=== PATIENT | female | born 1955 | race Caucasian/White ===

== ENCOUNTER 2018-06-26 16:05 | Inpatient (IN) | payer SELFPAY ==
[~2018-06-26] VITALS: Ht 167.6 cm; Wt 95.4 kg
[2018-06-26] MEDS ORDERED: cloNIDine HCL 0.1 MG TABLET PO ONE (16:30)
[2018-06-26 16:42] LABS: BASO # 0.1 x10^3/uL (0.0-0.2); BASO % 1 % (0-3); EOS # 0.4 x10^3/uL (0.0-0.7); EOS % 3 % (0-3); HEMOGLOBIN 12.6 g/dL (12.0-15.5); LYMPH # 0.9 x10^3/uL (1.0-4.8); LYMPH % 9 % (24-48); MEAN CORPUSCULAR HEMOGLOBIN 26 pg (25-35); MEAN CORPUSCULAR HGB CONC 33 g/dL (31-37); MEAN CORPUSCULAR VOLUME 79 fL (79-100); MONO # 0.4 x10^3/uL (0.0-1.1); MONO % 4 % (0-9); NEUT # 8.9 x10^3uL (1.8-7.7); NEUT % 83 % (31-73); PLATELET COUNT 247 x10^3/uL (140-400); RED BLOOD COUNT 4.84 x10^6/uL (3.50-5.40); RED CELL DISTRIBUTION WIDTH 14.3 % (11.5-14.5); WHITE BLOOD COUNT 10.7 x10^3/uL (4.0-11.0)
--- NOTE | 2018-06-26 16:44 | PHYS DOC ---
Past History Past Medical History: Depression, Hypertension, Other Past Surgical History: Appendectomy, , Other Alcohol Use: None Drug Use: None Adult General Chief Complaint Chief Complaint: CHEST PAIN HPI HPI 62-year-old female presents with chest pain. She comes from Dr. Ley's office. She was sitting on a couch around noon when she got a sudden movements central chest pressure. She rates it 8 out of 10. She also had some shortness of breath but no diaphoresis. He is never had pain like this before. She took an antacid pill, Mylanta, and a.she states that this helped with the pain a little bit, but it really didn't start to subside for about an hour. The patient does have a history of GERD, but only uses wwqv-oed-bmbheot medications occasionally. At this time as a 2 out of 10. She was given a 325 of aspirin at the doctor's office. She is also very hypertensive in the 190s over 90s. Patient takes lisinopril/ hydrochlorothiazide combo pills for her blood pressure. He is normally gives her good blood pressure control. Patient denies recent illness. She denies fever or chills. Review of Systems Review of Systems Constitutional: Denies fever or chills [] Eyes: Denies change in visual acuity, redness, or eye pain [] HENT: Denies nasal congestion or sore throat [] Respiratory: Denies cough or shortness of breath [] Cardiovascular: No additional information not addressed in HPI [] GI: Denies abdominal pain, nausea, vomiting, bloody stools or diarrhea [] : Denies dysuria or hematuria [] Musculoskeletal: Denies back pain or joint pain [] Integument: Denies rash or skin lesions [] Neurologic: Denies headache, focal weakness or sensory changes [] Endocrine: Denies polyuria or polydipsia [] All other systems were reviewed and found to be within normal limits, except as documented in this note. Current Medications Current Medications Current Medications Medications (Trade) Dose Ordered Sig/Asuncion Start Time Stop Time Status Last Admin Dose Admin Clonidine HCl (Catapres) 0.2 mg 1X ONCE 06/26/18 16:30 06/26/18 16:31 DC 06/26/18 16:32 0.2 MG Allergies Allergies Allergies Coded Allergies Type Severity Reaction Last Updated Verified No Known Drug Allergies 06/26/18 No Physical Exam Physical Exam Constitutional: Well developed, obese, well nourished, no acute distress, non- toxic appearance. [] HENT: Normocephalic, atraumatic, bilateral external ears normal, oropharynx moist, no oral exudates, nose normal. [] Eyes: PERRLA, EOMI, conjunctiva normal, no discharge. [] Neck: Normal range of motion, no tenderness, supple, no stridor. [] Cardiovascular:Heart rate regular rhythm, no murmur [] Lungs & Thorax: Bilateral breath sounds clear to auscultation [] Abdomen: Bowel sounds normal, soft, no tenderness, no masses, no pulsatile masses. [] Skin: Warm, dry, no erythema, no rash. [] Back: No tenderness, no CVA tenderness. [] Extremities: No tenderness, no cyanosis, no clubbing, ROM intact, 2+ edema lower legs. [] Neurologic: Alert and oriented X 3, normal motor function, normal sensory function, no focal deficits noted. [] Psychologic: Affect normal, judgement normal, mood normal. [] Current Patient Data Vital Signs Vital Signs Date Time Temp Pulse Resp B/P (MAP) Pulse Ox O2 Delivery O2 Flow Rate FiO2 06/26/18 16:32 75 194/99 06/26/18 16:15 98.2 14 95 Room Air EKG EKG [] Radiology/Procedures Radiology/Procedures [] Course & Med Decision Making Course & Med Decision Making Pertinent Labs and Imaging studies reviewed. (See chart for details) Patient's labs are significant for an elevated troponin of 0.217. Her EKG does not show ST elevation. Her other labs are unremarkable. We will admit her to the hospital. I will place her on heparin drip I discussed this with Dr. Ley and he has agreed with admission and management. Greater than 35 minutes of critical care time was spent on this patient exclusive of other billable procedures. [] Dragon Disclaimer Dragon Disclaimer This electronic medical record was generated, in whole or in part, using a voice recognition dictation system. Departure Departure: Impression: Primary Impression: Chest pain Additional Impressions: Hypertension NSTEMI (non-ST elevated myocardial infarction) Disposition: ADMITTED INPATIENT Condition: STABLE Referrals: MYLA LEY MD (PCP) Problem Qualifiers Primary Impression: Chest pain Chest pain type: precordial pain Qualified Codes: R07.2 - Precordial pain Additional Impressions: Hypertension Hypertension type: essential hypertension Qualified Codes: I10 - Essential (primary) hypertension REDDY SEO DO Jun 26, 2018 16:44
[2018-06-26 17:03] LABS: ALBUMIN 3.6 g/dL (3.4-5.0); ALBUMIN/GLOBULIN RATIO 0.9 (1.0-1.7); CALCIUM 9.1 mg/dL (8.5-10.1); POTASSIUM 3.6 mmol/L (3.5-5.1); TOTAL BILIRUBIN 0.4 mg/dL (0.2-1.0); TOTAL PROTEIN 7.6 g/dL (6.4-8.2)
[2018-06-26] MEDS ORDERED: HEPARIN for IV BOLUS 10,000 UNIT/10 ML VIAL. IV ONE (17:15)
[2018-06-26] MEDS ORDERED: HEPARIN for IV BOLUS 10,000 UNIT/10 ML VIAL. IV PRN ×2 (17:15)
--- NOTE | 2018-06-26 17:24 | EKG ---
[address] [address] Test Date: 2018-06-26 Test Time: 16:24:59 Pat Name: MAYELA NARVAEZ Department: Room: Gender: F Observer Helper: NELLA : 1955 Requested By: REDDY SEO Order Number: [id number] Reading MD: Elgin Boswell Measurements Intervals [place] Rate: 76 P: 0 HI: 132 QRS: 61 QRSD: 86 T: 54 QT: 404 QTc: 459 Interpretive Statements SINUS RHYTHM VENTRICULAR PREMATURE COMPLEX(ES) Electronically Signed On 06-29-2018 9:45:33 CDT by Elgin Boswell
--- NOTE | 2018-06-26 17:30 | RAD ---
CHEST AP ONLY History: CHEST PAIN. Comparison with August 02, 2005. The heart size remains prominent in transverse diameter. This is likely accentuated by portable technique but is unchanged. No evidence of pneumothorax. No pleural effusion. No evidence of an infiltrate. IMPRESSION: No evidence of consolidating infiltrate. Electronically signed by: Seun Mathis MD (06/26/2018 5:27 PM) [facility]
[2018-06-26] MEDS: HEPARIN 25,000UTS/500ML PREMIX 500 ML IV PRN ×2 (17:31→17:37)
[2018-06-26] MEDS ORDERED: MORPHINE SULFATE 4 MG/ML DISP.SYRIN. IV PRN (17:45)
[2018-06-26] MEDS ORDERED: ONDANSETRON PF 4 MG/2 ML VIAL. IV PRN ×2 (17:45→18:30)
[2018-06-26] MEDS ORDERED: NITROGLYCERIN SUBLINGUAL 0.4 MG BOTTLE OF 25. SL PRN (17:45)
[2018-06-26] MEDS ORDERED: ACETAMINOPHEN 325 MG TABLET PO PRN (18:30)
[2018-06-26] MEDS ORDERED: METOCLOPRAMIDE HCL 10 MG/2 ML VIAL. IV PRN (18:30)
[2018-06-26 18:44] VITALS: BP 166/82
[2018-06-26 20:00] VITALS: BP 154/89
[2018-06-26 20:50] VITALS: BP 153/74
[2018-06-26 22:08] VITALS: BP 144/80
[2018-06-26 23:18] VITALS: BP 169/83
[2018-06-27] VITALS (21 sets, daily range): BP systolic 129–171; BP diastolic 64–91
[2018-06-27] MEDS: cloNIDine HCL 0.2 MG TABLET PO PRN ×3 (00:09→23:46)
[2018-06-27] MEDS ORDERED: PARO40TA3 PO (01:56)
[2018-06-27] MEDS ORDERED: water pill (01:56)
[2018-06-27] MEDS ORDERED: LISI-334 PO (01:56)
[2018-06-27] MEDS ORDERED: ALPR0.25 PO (01:56)
[2018-06-27 06:27] LABS: BASO # 0.1 x10^3/uL (0.0-0.2); BASO % 1 % (0-3); EOS # 0.4 x10^3/uL (0.0-0.7); EOS % 4 % (0-3); HEMATOCRIT 34.9 % (36.0-47.0); HEMOGLOBIN 11.5 g/dL (12.0-15.5); LYMPH # 1.8 x10^3/uL (1.0-4.8); LYMPH % 22 % (24-48); MEAN CORPUSCULAR HEMOGLOBIN 26 pg (25-35); MEAN CORPUSCULAR HGB CONC 33 g/dL (31-37); MEAN CORPUSCULAR VOLUME 79 fL (79-100); MONO # 0.5 x10^3/uL (0.0-1.1); MONO % 5 % (0-9); NEUT # 5.7 x10^3uL (1.8-7.7); NEUT % 68 % (31-73); PLATELET COUNT 223 x10^3/uL (140-400); RED BLOOD COUNT 4.41 x10^6/uL (3.50-5.40); RED CELL DISTRIBUTION WIDTH 14.1 % (11.5-14.5); WHITE BLOOD COUNT 8.5 x10^3/uL (4.0-11.0)
[2018-06-27 06:43] LABS: ALBUMIN 3.1 g/dL (3.4-5.0); ALBUMIN/GLOBULIN RATIO 0.9 (1.0-1.7); CALCIUM 8.8 mg/dL (8.5-10.1); MAGNESIUM 1.9 mg/dL (1.8-2.4); POTASSIUM 3.7 mmol/L (3.5-5.1); TOTAL BILIRUBIN 0.3 mg/dL (0.2-1.0); TOTAL PROTEIN 6.7 g/dL (6.4-8.2)
[2018-06-27] MEDS: METOPROLOL TART IMMED RELEASE 25 MG TABLET PO SCH ×2 (12:07→23:00)
[2018-06-27] MEDS: HEPARIN 25,000UTS/500ML PREMIX 500 ML IV PRN (12:09)
--- NOTE | 2018-06-27 12:48 | HP ---
ADMIT DATE: 06/26/2018 HISTORY OF PRESENT ILLNESS: A 62-year-old female came in through the Emergency Room. The patient was noting to have some chest pain, chest pressure 8/10, also some shortness of breath, but no diaphoresis. No nausea or vomiting. The patient took some Mylanta without any situational improvement. Blood pressure was still in 190's. The patient otherwise was brought over here to the Emergency Room. She was found to have elevated troponins. It looked like she was having a Non-STEMI. She was admitted to the hospital for further evaluation and treatment in the ICU, cardiology consultation. PAST MEDICAL HISTORY: She has had cardiac disorders. She has had abdominal surgery for an appendectomy, reproductive disorders. She has had a . ALLERGIES: She has no known drug allergies. MEDICATIONS: At home include lisinopril 20 mg a day, paroxetine 40 mg a day, Xanax 0.25, water pill and hydrochlorothiazide. ALLERGIES: No known drug allergies. SOCIAL HISTORY: The patient denies smoking, alcohol or drug use. CODE STATUS: Full code. FAMILY HISTORY: Positive for heart disease. REVIEW OF SYSTEMS: Positive for chest discomfort with exertion. Denies shortness of breath. Denies any headaches, visual changes, blurred vision, double vision. Denies any melena, hematochezia, or hematemesis and neurologically baseline. PHYSICAL EXAMINATION: GENERAL: This is a pleasant white female, morbidly obese. Weight 214 pounds. VITAL SIGNS: Initial blood pressure was 195/100, blood pressure stated, respiratory rate approximately 20, pulse 70, afebrile, oxygen saturation 95%. HEENT: The patient's head was atraumatic, normocephalic. Eyes: PERRLA without jaundice. The mouth and throat were normal. NECK: Supple without JVD, carotid bruits. No thyromegaly. LUNGS: Diminished throughout, poor movement of air. CARDIOVASCULAR: Regular sinus rhythm, S1, S2. ABDOMEN: Protuberant. Soft, nontender. No rebounding or guarding. Positive bowel sounds. No hepatosplenomegaly. EXTREMITIES: No clubbing, cyanosis. Trace edema. NEUROLOGIC: The patient was alert and oriented x 3. Speech fluent. Cranial nerves 2-12 are grossly intact. LABORATORY DATA: Demonstrated her electrolytes were all within normal limits. However, her troponins went from 0.27 up to 0.50. The patient refused heart catheterization. Albumin low at 3.1 and her blood count that is her CBC was stable at 11.5 and 35. The patient was admitted for further evaluation NON-STEMI, morbid obesity. Make further evaluation on her as indicated. Cardiology consultation. MYLA SMITH MD DR: AMY/abdirizak JOB#: [id number] / [id number]
[2018-06-27] MEDS ORDERED: LISINOPRIL 10 MG TABLET PO SCH (21:00)
[2018-06-28] VITALS (7 sets, daily range): BP systolic 134–163; BP diastolic 59–89
[2018-06-28] MEDS ORDERED: ASPIRIN 325 MG TABLET PO SCH (08:00)
[2018-06-28] MEDS ORDERED: ASPIRIN ENTERIC COATED 81 MG TABLET.DR. PO SCH (08:00)
--- NOTE | 2018-06-28 08:01 | PDOC ---
PROGRESS NOTES Diagnosis Problem Problems Medical Problems: (1) Chest pain Status: Acute (2) Hypertension Status: Acute (3) NSTEMI (non-ST elevated myocardial infarction) Status: Acute Assessment Problems Medical Problems: (1) Chest pain Status: Acute (2) Hypertension Status: Acute (3) NSTEMI (non-ST elevated myocardial infarction) Status: Acute 1. NSTEMI - patient now agreeable to cardiac cath. arrange for transfer and cath. R/B/A discussed and questions answered. 2. accelerated HTN - controlled at this time. required clonidine last pm. change to hydralazine PRN to avoid rebound. Increase lisinopril. 3. bradycardia - mild gabriel this am. decrease metoprolol. 4. HLD - start statin. Subjective no new chest pain, now agreeable to cath . waiting on to make final decision. Objective Vital Signs Date Time Temp Pulse Resp B/P (MAP) Pulse Ox O2 Delivery O2 Flow Rate FiO2 06/28/18 05:54 62 140/81 (100) 96 Room Air 06/28/18 05:31 98.2 06/27/18 20:45 16 Intake and Output 06/28/18 07:00 Intake Total 1430 ml Balance 1430 ml Intake Oral 1430 ml # Voids 5 # Bowel Movements 1 Physical Exam gen: A+Ox3, nad CV: RRR no S3S4 Lungs: CTA abd: soft Nontender +bowel sounds ext : trace edema Review of Relevant I have reviewed the following items emilie (where applicable) has been applied. Labs Laboratory Tests Test 06/26/18 16:00 06/26/18 16:29 06/26/18 19:00 06/26/18 20:34 White Blood Count 10.7 x10^3/uL (4.0-11.0) Red Blood Count 4.84 x10^6/uL (3.50-5.40) Hemoglobin 12.6 g/dL (12.0-15.5) Hematocrit 38.0 % (36.0-47.0) Mean Corpuscular Volume 79 fL (79-100) Mean Corpuscular Hemoglobin 26 pg (25-35) Mean Corpuscular Hemoglobin Concent 33 g/dL (31-37) Red Cell Distribution Width 14.3 % (11.5-14.5) Platelet Count 247 x10^3/uL (140-400) Neutrophils (%) (Auto) 83 % (31-73) Lymphocytes (%) (Auto) 9 % (24-48) Monocytes (%) (Auto) 4 % (0-9) Eosinophils (%) (Auto) 3 % (0-3) Basophils (%) (Auto) 1 % (0-3) Neutrophils # (Auto) 8.9 x10^3uL (1.8-7.7) Lymphocytes # (Auto) 0.9 x10^3/uL (1.0-4.8) Monocytes # (Auto) 0.4 x10^3/uL (0.0-1.1) Eosinophils # (Auto) 0.4 x10^3/uL (0.0-0.7) Basophils # (Auto) 0.1 x10^3/uL (0.0-0.2) Prothrombin Time 10.4 SEC (9.4-11.4) Prothromb Time International Ratio 1.0 (0.9-1.1) Activated Partial Thromboplast Time 24 SEC (23-33) Sodium Level 143 mmol/L (136-145) Potassium Level 3.6 mmol/L (3.5-5.1) Chloride Level 105 mmol/L (98-107) Carbon Dioxide Level 28 mmol/L (21-32) Anion Gap 10 (6-14) Blood Urea Nitrogen 12 mg/dL (7-20) Creatinine 1.0 mg/dL (0.6-1.0) Estimated GFR (Cockcroft-Gault) 56.0 BUN/Creatinine Ratio 12 (6-20) Glucose Level 107 mg/dL (70-99) Calcium Level 9.1 mg/dL (8.5-10.1) Total Bilirubin 0.4 mg/dL (0.2-1.0) Aspartate Amino Transf (AST/SGOT) 19 U/L (15-37) Alanine Aminotransferase (ALT/SGPT) 21 U/L (14-59) Alkaline Phosphatase 102 U/L (46-116) Troponin I Quantitative 0.217 ng/mL (0-0.055) 0.438 ng/mL (0-0.055) RW-Fpd-H-Type Natriuretic Peptide 528 pg/mL (0-124) Total Protein 7.6 g/dL (6.4-8.2) Albumin 3.6 g/dL (3.4-5.0) Albumin/Globulin Ratio 0.9 (1.0-1.7) Nasal Screen MRSA (PCR) Negative (Negative) Test 06/26/18 23:40 06/27/18 05:56 06/27/18 12:53 06/28/18 05:40 Activated Partial Thromboplast Time 50 SEC (23-33) 43 SEC (23-33) 23 SEC (23-33) Troponin I Quantitative 0.509 ng/mL (0-0.055) 0.478 ng/mL (0-0.055) White Blood Count 8.5 x10^3/uL (4.0-11.0) Red Blood Count 4.41 x10^6/uL (3.50-5.40) Hemoglobin 11.5 g/dL (12.0-15.5) Hematocrit 34.9 % (36.0-47.0) Mean Corpuscular Volume 79 fL (79-100) Mean Corpuscular Hemoglobin 26 pg (25-35) Mean Corpuscular Hemoglobin Concent 33 g/dL (31-37) Red Cell Distribution Width 14.1 % (11.5-14.5) Platelet Count 223 x10^3/uL (140-400) Neutrophils (%) (Auto) 68 % (31-73) Lymphocytes (%) (Auto) 22 % (24-48) Monocytes (%) (Auto) 5 % (0-9) Eosinophils (%) (Auto) 4 % (0-3) Basophils (%) (Auto) 1 % (0-3) Neutrophils # (Auto) 5.7 x10^3uL (1.8-7.7) Lymphocytes # (Auto) 1.8 x10^3/uL (1.0-4.8) Monocytes # (Auto) 0.5 x10^3/uL (0.0-1.1) Eosinophils # (Auto) 0.4 x10^3/uL (0.0-0.7) Basophils # (Auto) 0.1 x10^3/uL (0.0-0.2) Sodium Level 144 mmol/L (136-145) Potassium Level 3.7 mmol/L (3.5-5.1) Chloride Level 106 mmol/L (98-107) Carbon Dioxide Level 31 mmol/L (21-32) Anion Gap 7 (6-14) Blood Urea Nitrogen 12 mg/dL (7-20) Creatinine 1.0 mg/dL (0.6-1.0) Estimated GFR (Cockcroft-Gault) 56.0 BUN/Creatinine Ratio 12 (6-20) Glucose Level 108 mg/dL (70-99) Calcium Level 8.8 mg/dL (8.5-10.1) Magnesium Level 1.9 mg/dL (1.8-2.4) Total Bilirubin 0.3 mg/dL (0.2-1.0) Aspartate Amino Transf (AST/SGOT) 18 U/L (15-37) Alanine Aminotransferase (ALT/SGPT) 17 U/L (14-59) Alkaline Phosphatase 82 U/L (46-116) Total Protein 6.7 g/dL (6.4-8.2) Albumin 3.1 g/dL (3.4-5.0) Albumin/Globulin Ratio 0.9 (1.0-1.7) Triglycerides Level 146 mg/dL (0-150) Cholesterol Level 175 mg/dL (0-200) LDL Cholesterol, Calculated 106 mg/dL (0-100) VLDL Cholesterol, Calculated 29 mg/dL (0-40) Non-HDL Cholesterol Calculated 135 mg/dL (0-129) HDL Cholesterol 40 mg/dL (40-60) Cholesterol/HDL Ratio 4.0 Thyroid Stimulating Hormone (TSH) 2.158 uIU/mL (0.358-3.740) D-Dimer (Madison) 6.44 mg/L (0.00-0.50) Medications Current Medications Clonidine HCl (Catapres) 0.2 mg 1X ONCE PO Last administered on 06/26/18at 16:32; Start 06/26/18 at 16:30; Stop 06/26/18 at 16:31; Status DC Heparin Sodium/ Dextrose 500 ml @ 0 mls/hr CONT PRN IV SEE I/O RECORD Last administered on 06/27/18at 12:09; Start 06/26/18 at 17:15; Stop 06/27/18 at 15:48; Status DC Heparin Sodium (Porcine) (Heparin Sodium) 7,000 unit 1X ONCE IV Last administered on 06/26/18at 17:28; Start 06/26/18 at 17:15; Stop 06/27/18 at 15:48; Status DC Heparin Sodium (Porcine) (Heparin Sodium) 2,000 unit PRN Q6HRS PRN IV FOLLOW PROTOCOL GUIDELINES; Start 06/26/18 at 17:15; Stop 06/27/18 at 15:48; Status DC Heparin Sodium (Porcine) (Heparin Sodium) 1,000 unit PRN Q6HRS PRN IV FOLLOW PROTOCOL GUIDELINES; Start 06/26/18 at 17:15; Stop 06/27/18 at 15:48; Status DC Ondansetron HCl (Zofran) 4 mg PRN Q4HRS PRN IV NAUSEA/VOMITING; Start 06/26/18 at 17:45; Stop 06/26/18 at 18:26; Status DC Morphine Sulfate (Morphine 4mg Syringe) 2 mg PRN Q2HR PRN IV PAIN; Start 06/26/18 at 17:45; Stop 06/27/18 at 17:44; Status DC Nitroglycerin (Nitrostat) 0.4 mg PRN Q5MIN PRN SL CHEST PAIN; Start 06/26/18 at 17:45; Stop 06/27/18 at 17:44; Status DC Acetaminophen (Tylenol) 650 mg PRN Q6HRS PRN PO Headaches, Temp > 101.5F; Start 06/26/18 at 18:30 Metoclopramide HCl (Reglan Vial) 10 mg PRN Q6HRS PRN IV NAUSEA/VOMITING; Start 06/26/18 at 18:30 Ondansetron HCl (Zofran) 4 mg PRN Q8HRS PRN IV NAUSEA/VOMITING; Start 06/26/18 at 18:30 Clonidine HCl (Catapres) 0.2 mg PRN Q1HR PRN PO HYPERTENSION, SEE COMMENTS Last administered on 06/27/18at 23:46; Start 06/26/18 at 19:45 Metoprolol Tartrate (Lopressor) 12.5 mg BID PO Last administered on 06/27/18at 12:07; Start 06/27/18 at 11:30 Aspirin (Aspirin Enteric Coated) 81 mg DAILYWBKFT PO ; Start 06/28/18 at 08:00; Status Cancel Aspirin (Yamil Aspirin) 325 mg DAILYWBKFT PO ; Start 06/28/18 at 08:00 Lisinopril (Prinivil) 10 mg HS PO Last administered on 06/27/18at 20:59; Start 06/27/18 at 21:00 Active Scripts Active Reported [water pill] Xanax (Alprazolam) 0.25 Mg Tablet 0.25 Mg PO PRN DAILY PRN Paroxetine Hcl 40 Mg Tablet 40 Mg PO DAILY Lisinopril 20 Mg Tablet 25 Mg PO DAILY Vitals/I & O Vital Sign - Last 24 Hours 06/27/18 06/27/18 06/27/18 06/27/18 08:00 08:02 09:00 09:35 Pulse 56 76 Resp 18 B/P (MAP) 131/72 (91) 152/91 (111) 166/94 Pulse Ox 96 98 O2 Delivery Room Air Room Air Room Air 06/27/18 06/27/18 06/27/18 06/27/18 10:00 11:00 11:00 12:00 Pulse 64 64 62 B/P (MAP) 141/72 (95) 135/67 (89) 150/80 (103) Pulse Ox 98 95 95 O2 Delivery Room Air Room Air Room Air Room Air 06/27/18 06/27/18 06/27/18 06/27/18 12:07 13:00 14:00 16:00 Pulse 62 56 B/P (MAP) 166/94 150/80 (103) 143/64 (90) Pulse Ox 95 96 O2 Delivery Room Air Room Air Room Air 06/27/18 06/27/18 06/27/18 06/27/18 17:45 18:45 20:30 20:45 Temp 98.6 Pulse 65 67 65 Resp 16 B/P (MAP) 159/75 (103) 137/64 (88) 143/74 (97) Pulse Ox 97 97 98 O2 Delivery Room Air Room Air Room Air Room Air 06/27/18 06/27/18 06/27/18 06/27/18 20:59 21:53 22:44 23:00 Pulse 58 69 60 51 B/P (MAP) 143/74 150/71 (97) 167/86 (113) 167/86 Pulse Ox 97 96 O2 Delivery Room Air Room Air 06/27/18 06/27/18 06/27/18 06/28/18 23:44 23:46 23:59 00:00 Temp 98.4 Pulse 57 58 B/P (MAP) 171/90 (117) 171/90 Pulse Ox 96 O2 Delivery Room Air Room Air 06/28/18 06/28/18 06/28/18 06/28/18 00:44 01:45 02:42 03:42 Pulse 53 58 54 55 B/P (MAP) 163/78 (106) 147/68 (94) 135/65 (88) 136/89 (105) Pulse Ox 96 96 97 97 O2 Delivery Room Air Room Air Room Air Room Air 06/28/18 06/28/18 06/28/18 06/28/18 04:42 05:27 05:31 05:54 Temp 98.2 Pulse 51 62 B/P (MAP) 138/68 (91) 140/81 (100) Pulse Ox 98 96 O2 Delivery Room Air Room Air Room Air Intake and Output 06/27/18 06/27/18 06/28/18 15:00 23:00 07:00 Intake Total 730 ml 600 ml 100 ml Balance 730 ml 600 ml 100 ml SHERI WILSON DIRECTOR OF PURCHASING June 28, 2018 08:01
--- NOTE | 2018-06-28 09:19 | CARD ---
MR#: [id number] Date of Study: 06/27/2018 Ordering Physician: MYLA SMITH, Referring Physician: MYLA SMITH, Tech: Lainey Howard ROWAN APPROVED REPORT EXAM: Two-dimensional and M-mode echocardiogram with Doppler and color Doppler. Other Information Quality : Good INDICATION Chest Pain Non STEMI 2D DIMENSIONS RVDd2.6 (2.9-3.5cm)Left Atrium(2D)3.8 (1.6-4.0cm) IVSd0.9 (0.7-1.1cm)Aortic Root(2D)3.0 (2.0-3.7cm) LVDd5.0 (3.9-5.9cm)LVOT Diameter1.9 (1.8-2.4cm) PWd0.8 (0.7-1.1cm)LVDs3.4 (2.5-4.0cm) FS (%) 31.8 %SV72.0 ml LVEF(%)59.5 (>50%) Aortic Valve AoV Peak Tamir.169.9cm/sAoV VTI32.2cm AO Peak GR.11.5mmHgAO Mean GR.6mmHg NAOMY (VTI)2.05kp2EO P 1/2 Aybs341ps Mitral Valve MV E Ympdpspa59.3cm/sMV DECEL DAZU200eb MV A Ihtegstp16.9cm/sE/A Ratio1.4 Tricuspid Valve TR P. Skyiyumj075fl/sRAP [id number] TR Peak Gr.[id number] LEFT VENTRICLE The left ventricle is normal size. There is normal left ventricular wall thickness. The left ventricu lar systolic function is normal. The Ejection Fraction is 55-60%. There is normal LV segmental wall m otion. RIGHT VENTRICLE The right ventricle is normal size. The right ventricular systolic function is normal. ATRIA The left atrium size is normal. The right atrium size is normal. The interatrial septum is intact wit h no evidence for an atrial septal defect or patent foramen ovale as noted on 2-D or Doppler imaging. AORTIC VALVE The aortic valve is calcified but opens well. Doppler and Color Flow revealed trace aortic regurgitat ion. There is no significant aortic valvular stenosis. MITRAL VALVE The mitral valve is calcified but opens well. There is no evidence of mitral valve prolapse. There is no mitral valve stenosis. Doppler and Color-flow revealed mild mitral regurgitation. TRICUSPID VALVE The tricuspid valve is normal in structure and function. Doppler and Color Flow revealed mild tricusp id regurgitation. The PA pressure was estimated at 29 mmHg. There is no tricuspid valve stenosis. PULMONIC VALVE The pulmonic valve is not well visualized. Doppler and Color Flow revealed no pulmonic valvular regur gitation. There is no pulmonic valvular stenosis. GREAT VESSELS The aortic root is normal in size. The ascending aorta is normal in size. The IVC is normal in size a nd collapses >50% with inspiration. PERICARDIAL EFFUSION There is no evidence of significant pericardial effusion. Critical Notification Critical Value: No <Conclusion> The left ventricular systolic function is normal. The Ejection Fraction is 55-60%. There is normal LV segmental wall motion. Mild mitral regurgitation. Mild tricuspid regurgitation. The PA pressure was estimated at 29 mmHg. There is no evidence of significant pericardial effusion. Signed by : Valdez Godfrey, Electronically Approved : 06/28/2018 09:18:52
[2018-06-28] MEDS ORDERED: METOPROLOL SUCC 24HR ER 25 MG TAB.ER.24H. PO ONE (09:47)
[2018-06-28] MEDS ORDERED: METO25TA2 PO (11:47)
[2018-06-28] MEDS ORDERED: LISI-334 PO (11:47)
[2018-06-28] MEDS ORDERED: ASPI325T8 PO (11:47)
[2018-06-28] MEDS ORDERED: ATOR20TA PO (11:47)
[2018-06-28] MEDS ORDERED: NITR0.4T22 SL (11:47)
--- NOTE | 2018-06-28 20:26 | DS ---
DATE OF DISCHARGE: 06/28/2018 HOSPITAL COURSE: A 62-year-old female came in through the Emergency Room with chest pressure approximately 8/10. The patient was found to have a non-STEMI. The patient in turn was placed on a heparin drip. She remained basically stable. Her cholesterol was within range. Her troponins were as high as 0.50. The patient was recommended to be transferred to another facility for heart catheterization. There was a great deal of reluctance on the family's part. They first did not agree, then they agreed, then they just wanted to be discharged against medical advice as far as going to either or [facility] for further evaluation. She was warned of the situation immediately and as a result of this, the patient and her were discharged. Her echo did show continued 55-60% ejection fraction. The patient was encouraged to seek medical attention as soon as possible at either or [facility] depending on their preference. In any case, the patient was discharged and followup. IMPRESSION: Iiv-QM-tqkgybpqt myocardial infarction, morbid obesity, hypertension. PLAN: The patient continued to be monitored carefully, make further evaluation on her as indicated and told her to follow up with [facility] or as soon as possible. MYLA SMITH MD DR: AMY/abdirizak JOB#: [id number] / [id number]
[2018-06-28] MEDS ORDERED: LISINOPRIL 20 MG TABLET PO SCH (21:00)
[2018-06-28] MEDS ORDERED: ATORVASTATIN CALCIUM 20 MG TABLET PO SCH (21:00)
[2018-06-29] MEDS ORDERED: METOPROLOL SUCC 24HR ER 25 MG TAB.ER.24H. PO SCH (09:00)
== END 2018-06-28 12:35 | disposition home or self-care (01) | DRG 282 ==
LOC: ER 16:05 → ICU 17:15
PROVIDERS: ADMIT Family Medicine; ATTEND Family Medicine
DX: I21.4 Non-ST elevation (NSTEMI) myocardial infarction (principal); E66.01 Morbid (severe) obesity due to excess calories; K21.9 Gastro-esophageal reflux disease without esophagitis; R00.1 Bradycardia, unspecified; E78.5 Hyperlipidemia, unspecified; I10 Essential (primary) hypertension; I25.2 Old myocardial infarction; Z90.49 Acquired absence of other specified parts of digestive tract; Z68.33 Body mass index [BMI] 33.0-33.9, adult
CPT/HCPCS: 36415; 71045; 80053; 80061; 83735; 83880; 84443; 84484; 85025; 85379; 85610; 85730; 87641; 93005; 93306; 96374; J1644; 99291-25

== ENCOUNTER 2018-10-24 04:25 | Inpatient (IN) | payer SELFPAY ==
[~2018-10-24] VITALS: Ht 170.2 cm; Wt 97.2 kg
[~2018-10-24 04:25] MED LIST: ALPR0.25 PO; ASPI325T8 PO; ATOR20TA PO; LISI-334 PO; METO25TA2 PO; NITR0.4T22 SL; PARO40TA3 PO; water pill
[2018-10-24] MEDS ORDERED: IV NORMAL SALINE 1,000ML 1,000 ML IV ONE ×2 (05:00→06:15)
--- NOTE | 2018-10-24 05:16 | PHYS DOC ---
Past History Past Medical History: Depression, Hypertension, Other (SNEHA ROSALES MD) Past Surgical History: Appendectomy, , Other (SNEHA ROSALES MD) Alcohol Use: None Drug Use: None (SNEHA ROSALES MD) Adult General Chief Complaint Chief Complaint: WEAKNESS/GENERALIZED HPI HPI Patient is a 63-year-old female presenting with chief complaint of weakness. Apparently the patient at home and her blood pressure in the 70s and 80s systolic and she felt pretty weak. He called 911. Here in the emergency room on arrival her blood pressure is 119 systolic on my evaluation. Patient states that she just feels overall weak denies chest pain denies shortness of breath does have mild nausea denies abdominal pain no diarrhea. Of note she recently was admitted to [facility] she tells me that she had which she thinks might have been a blood clot in her left leg but she is a bit of a challenging historian but it sounds that she was instructed to go to her primary doctor for continued treatment of anticoagulation but she has not yet made it there. Patient takes lisinopril and hydrochlorothiazide for blood pressure control she endorses compliance with these medications she denies any recent fever. (SNEHA ROSALES MD) Review of Systems Review of Systems Constitutional: Denies fever or chills [] Eyes: Denies change in visual acuity, redness, or eye pain [] HENT: Denies nasal congestion or sore throat [] Respiratory: Denies cough or shortness of breath [] Cardiovascular: No additional information not addressed in HPI [] GI: Denies abdominal pain,, vomiting, bloody stools or diarrhea [] Neurologic: Denies headache, focal weakness or sensory changes [] All other systems were reviewed and found to be within normal limits, except as documented in this note. (SNEHA ROSALES MD) Current Medications Current Medications Current Medications Medications (Trade) Dose Ordered Sig/Asuncion Start Time Stop Time Status Last Admin Dose Admin Sodium Chloride 1,000 ml @ 1,000 mls/hr 1X ONCE 10/24/18 05:00 10/24/18 05:59 UNV (SNEHA ROSALES MD) Allergies Allergies Allergies Coded Allergies Type Severity Reaction Last Updated Verified No Known Drug Allergies 06/26/18 No (SNEHA ROSALES MD) Physical Exam Physical Exam Constitutional: Well developed, chronically ill-appearing HENT: Normocephalic, atraumatic, bilateral external ears normal, oropharynx moist, no oral exudates, nose normal. [] Eyes: PERRLA, EOMI, conjunctiva normal, no discharge. [] Neck: Normal range of motion, no tenderness, supple, no stridor. [] Cardiovascular:Heart rate regular rhythm, no murmur [] Lungs & Thorax: Bilateral breath sounds clear to auscultation [] Abdomen: Bowel sounds normal, soft, no tenderness, no masses, no pulsatile masses. [] Skin: Warm, dry, no erythema, no rash. [] Back: No tenderness, no CVA tenderness. [] Extremities: No tenderness, no cyanosis, no clubbing, ROM intact, there is no asymmetric edema of the left lower extremity no significant induration Neurologic: Alert and oriented X 3, normal motor function, normal sensory function, no focal deficits noted. [] Psychologic: Affect normal, judgement normal, mood normal. [] (SNEHA ROSALES MD) Current Patient Data Vital Signs * 98.5 degrees F (97.5-99.5) Temperature Source * Oral Blood Pressure Systolic * 119 mm Hg (100-140) Blood Pressure Diastolic * 60 mm Hg (60-100) Blood Pressure Mean * 79 mm Hg Blood Pressure Location * Right Arm Blood Pressure Source * Automatic Cuff Pulse Rate * 90 beats per minute (60-90) Pulse Assessment Method * Monitor Respiratory Rate * 20 breaths per minute (12-24) Oxygen Delivery Method * Room Air Bedside Pulse Oximetry * 94 % Treatment Prior to Arrival * No Complaint of Pain (SNEHA ROSALES MD) EKG EKG []EKG shows a normal sinus rhythm with a rate of 90 no acute ischemic changes noted interpreted by me the time of encounter. QTC is 420 (SNEHA ROSALES MD) Radiology/Procedures Radiology/Procedures [] Impressions: cxr my read no definite pna (SNEHA ROSALES MD) Impressions: Left Lower Extremity Venous Doppler: Reason for examination: Left lower extremity pain. The left lower extremity venous system was evaluated from the common femoral and greater saphenous veins distally to the calf veins with grayscale imaging, color-flow imaging and spectral analysis. There is deep venous thrombosis from the common femoral vein to the posterior tibial and peroneal veins. There is also thrombus in the proximal greater saphenous vein. There is noncompressibility of the venous structures without augmentation. Impression: Deep venous thrombosis in the left lower extremity from the common femoral vein to the posterior tibial and peroneal veins and in the proximal greater saphenous vein. Electronically signed by: Eun Ortiz MD (10/24/2018 6:38 AM) [facility] DICTATED AND SIGNED BY: EUN ORTIZ MD DATE: 10/24/1838 CC: REDDY SEO DO; MYLA SMITH MD; SNEHA ROSALES MD ~ (REDDY SEO DO) Course & Med Decision Making Course & Med Decision Making Pertinent Labs and Imaging studies reviewed. (See chart for details) []63-year-old female history of obesity and hypertension who present with an episode of hypotension at home apparently blood pressure was in the 70s and 80s systolic In the emergency room first blood pressure that I see is 119 systolic we will do a basic hypotension workup labs we'll hydrate check urine and chest x-ray. In addition patient does have some left isolated left leg swelling will get ultrasound to evaluate for DVT. care to nazia 6 am pending completion of workup and final dispo. pt pmd is gordy (SNEHA ROSALES MD) Course & Med Decision Making The patient does have a large DVT in her left leg. I will place her on 1mg/kg of Lovenox. Her Cr is 3.8 and she usually has a normal Cr. We will continue to give her fluids. Given the patient's cough, I am concerned about pulmonary embolus however CT imaging of the chest is not advised her to her current creatinine. Her vital signs are stable and I do not believe it is an emergency. We will be treating her for a thrombus regardless. The patient's urinalysis was borderline for infection, so I will go ahead and treat her with 1 g of Rocephin given her white count of 17. I discussed these results with the patient and she understands the need for admission. I spoke with Dr. Smith and he has accepted the patient for admission. He will determine whether or not the patient will have a CT angiogram of the chest or a VQ scan as appropriate. (REDDY SEO DO) Dragon Disclaimer Dragon Disclaimer This electronic medical record was generated, in whole or in part, using a voice recognition dictation system. (SNEHA ROSALES MD) Departure Departure: Impression: Primary Impression: Left leg DVT Additional Impressions: Acute kidney failure Elevated WBC count Cough Disposition: ADMITTED INPATIENT Admitting Physician: Myla Smith (REDDY SEO DO) Condition: STABLE Referrals: MYLA SMITH MD (PCP) Problem Qualifiers Additional Impressions: Acute kidney failure Acute renal failure type: unspecified Qualified Codes: N17.9 - Acute kidney failure, unspecified Elevated WBC count Leukocytosis type: unspecified Qualified Codes: D72.829 - Elevated white blood cell count, unspecified SNEHA ROSALES MD Oct 24, 2018 05:16 REDDY SEO DO Oct 24, 2018 06:40
[2018-10-24 05:38] LABS: BASO # 0.1 x10^3/uL (0.0-0.2); BASO % 1 % (0-3); EOS # 0.5 x10^3/uL (0.0-0.7); EOS % 3 % (0-3); HEMATOCRIT 37.7 % (36.0-47.0); HEMOGLOBIN 12.2 g/dL (12.0-15.5); LYMPH # 2.7 x10^3/uL (1.0-4.8); LYMPH % 16 % (24-48); MEAN CORPUSCULAR HEMOGLOBIN 26 pg (25-35); MEAN CORPUSCULAR HGB CONC 32 g/dL (31-37); MEAN CORPUSCULAR VOLUME 80 fL (79-100); MONO # 1.1 x10^3/uL (0.0-1.1); MONO % 6 % (0-9); NEUT # 12.6 x10^3uL (1.8-7.7); NEUT % 74 % (31-73); PLATELET COUNT 211 x10^3/uL (140-400); RED BLOOD COUNT 4.73 x10^6/uL (3.50-5.40); RED CELL DISTRIBUTION WIDTH 14.4 % (11.5-14.5); WHITE BLOOD COUNT 17.1 x10^3/uL (4.0-11.0)
[2018-10-24 05:49] LABS: BILIRUBIN,URINE NEG (NEG); CLARITY,URINE HAZY; COLOR,URINE YELLOW; GLUCOSE,URINE NEG (NEG); NITRITE,URINE NEG (NEG); UROBILINOGEN,URINE 0.2 mg/dL (0.2 mg/dL)
[2018-10-24 05:50] LABS: BACTERIA,URINE FEW /HPF (0-FEW); SQUAMOUS EPITHELIAL CELL,UR FEW /LPF
[2018-10-24 05:54] LABS: % BANDS 1 % (0-9); % EOS 6 % (0-5); % LYMPHS 15 % (24-48); % MONOS 2 % (0-10); % SEGS 76 % (35-66); PLT ESTIMATE ADEQUATE (ADEQUATE)
[2018-10-24 05:55] LABS: ALBUMIN 3.8 g/dL (3.4-5.0); ALBUMIN/GLOBULIN RATIO 0.9 (1.0-1.7); CALCIUM 9.2 mg/dL (8.5-10.1); CREATININE 3.8 mg/dL (0.6-1.0); POTASSIUM 4.3 mmol/L (3.5-5.1); TOTAL BILIRUBIN 0.5 mg/dL (0.2-1.0)
[2018-10-24] MEDS ORDERED: cefTRIAXone SODIUM 1 GM VIAL ONE (06:24)
[2018-10-24] MEDS ORDERED: IV NORMAL SALINE 50ML 50 ML ONE (06:24)
[2018-10-24] MEDS ORDERED: ACETAMINOPHEN 325 MG TABLET PO PRN (06:30)
[2018-10-24] MEDS ORDERED: ONDANSETRON PF 4 MG/2 ML VIAL. IV PRN (06:30)
--- NOTE | 2018-10-24 06:31 | EKG ---
[address] [address] Test Date: 2018-10-24 Test Time: 05:08:34 Pat Name: MAYELA NARVAEZ Department: Room: Gender: F [employer] Head: : [id number] Requested By: SNEHA ROSALES Order Number: [id number] Reading MD: Easton Foote MD Measurements Intervals [place] Rate: 90 P: 64 [place]: 130 QRS: 26 QRSD: 86 T: 46 QT: 340 QTc: 420 Interpretive Statements SINUS RHYTHM NON-SPECIFIC ST/T CHANGES Electronically Signed On 10-24-2018 8:16:27 CDT by Easton Foote MD
--- NOTE | 2018-10-24 06:41 | RAD ---
Left Lower Extremity Venous Doppler: Reason for examination: Left lower extremity pain. The left lower extremity venous system was evaluated from the common femoral and greater saphenous veins distally to the calf veins with grayscale imaging, color-flow imaging and spectral analysis. There is deep venous thrombosis from the common femoral vein to the posterior tibial and peroneal veins. There is also thrombus in the proximal greater saphenous vein. There is noncompressibility of the venous structures without augmentation. Impression: Deep venous thrombosis in the left lower extremity from the common femoral vein to the posterior tibial and peroneal veins and in the proximal greater saphenous vein. Electronically signed by: Eun Guallpa MD (10/24/2018 6:38 AM) [facility]
[2018-10-24] MEDS ORDERED: ENOXAPARIN ** NOTE DOSE ** SYRINGE SQ ONE (06:45)
--- NOTE | 2018-10-24 07:01 | RAD ---
CHEST AP ONLY History: Cough. Congestion. Weakness Comparison: June 26, 2018 Findings: No consolidation or pleural effusion. Normal heart size. Mild elevation of the right hemidiaphragm, unchanged. Impression: 1. No acute cardiopulmonary process. Electronically signed by: Tyler Garcia DO (10/24/2018 6:58 AM) [facility]
[2018-10-24 07:53] VITALS: BP 118/76
[2018-10-24] MEDS: IV NORMAL SALINE 1,000ML 1,000 ML IV SCH ×3 (09:11→21:40)
[2018-10-24] MEDS ORDERED: HYDR12.58 PO (09:26)
[2018-10-24 10:21] VITALS: BP 92/61
[2018-10-24] MEDS: APIXABAN 5 MG TABLET. PO SCH ×2 (11:43→21:39)
--- NOTE | 2018-10-24 13:46 | RAD ---
V/Q LUNG SCAN CLINICAL INDICATIONS: History of deep venous thrombosis in the left lower extremity from the common femoral vein on down. Cough and congestion and weakness. Possible pulmonary embolism. COMPARISON: No previous V/Q lung scan available. Chest x-ray performed today. TECHNIQUE: After inhalation of 9 mCi of Xenon 133 gas, anterior and posterior planar images of the lung rivera were performed in the single breath and equilibrium and washout phases. After IV infusion of 5.5 mCi of technetium 99m MAA, multiplanar images of both lung rivera were performed. FINDINGS: No ventilatory defect or significant retention of radiotracer activity is seen. Chest x-ray demonstrates no acute lung infiltrate today. Multiple bilateral unmatched perfusion defects are seen. Therefore, the findings are consistent with high probability for pulmonary embolism. IMPRESSION: High probability for pulmonary embolism. Note-this critical result was called to the patient's floor nurse, Veroncia at 1:43 PM on October 24, 2018. Electronically signed by: Akira Prince MD (10/24/2018 1:43 PM) [id number]
--- NOTE | 2018-10-24 14:27 | HP ---
ADMIT DATE: 10/24/2018 HISTORY OF PRESENT ILLNESS: A 63-year-old female came in through the Emergency Room with severe left leg swelling. The patient also had a V/Q scan, which demonstrated high probability of a PE and as a result of this, the patient was admitted. She denied chest pain or shortness of breath for that matter. Oxygen saturation was in the 90s and her pulse rate anywhere from 65-90 but in any case, because of the severity of the clot in all, the patient was admitted to the hospital for further evaluation and treatment, continuing her Eliquis actually increasing it. She had a similar problem down at . She was on Lovenox. We started her on Eliquis 5 mg b.i.d. but for whatever reason, the patient developed this clot in her left leg and now we are going to increase it to 10 mg b.i.d. PAST MEDICAL HISTORY: The patient's past medical history includes that of a non-STEMI on 06/26/2018, hypertension, abdominal appendectomy. She has had C-sections and depression. VACCINATIONS: Up-to-date for influenza. ALLERGIES: No known drug allergies. MEDICATIONS: The patient was taking lisinopril 20 mg daily, hydrochlorothiazide 12.5 mg daily and Eliquis 5 mg I believe from her history, it is not quite clear and this sounds like she was just taking it once a day. SOCIAL HISTORY: The patient denies smoking, alcohol or drug use. FAMILY HISTORY: Noncontributory for blood clots. REVIEW OF SYSTEMS: She denies any headaches, visual changes, blurred vision, double vision. Denies chest pain, shortness of breath, abdominal pain. Does have pain in her left leg where it is markedly swollen. PHYSICAL EXAMINATION: GENERAL: The patient on exam is a pleasant white female, in no apparent distress. VITAL SIGNS: Blood pressure 130/40, respiratory rate 20, pulse 90, afebrile, oxygen saturation 96-98%. HEENT: The patient's head was atraumatic, normocephalic. Eyes: PERRLA without jaundice. Mouth and throat: Poor dentition. NECK: Supple, without JVD, carotid bruits. No thyromegaly. LUNGS: Diminished throughout, but basically clear. CARDIOVASCULAR: Regular sinus rhythm, S1, S2, without murmur, rub, thrill, or extra heart sounds. ABDOMEN: Soft, protuberant, nontender. No rebounding or guarding. Positive bowel sounds, no hepatosplenomegaly was noted. EXTREMITIES: No clubbing, cyanosis. Left leg is markedly swollen from the thigh on down. Pulses noted distally bilaterally. NEUROLOGIC: The patient is alert and oriented x 3. The patient was started on Eliquis to increasing the dose to 10 mg twice a day. She is on IV fluids. The patient will continue to be monitored carefully, consulted with pharmacy about regimen for her DVT and PE, otherwise will make further evaluation on her as indicated and continue to monitor her. LABORATORY DATA: The patient's white count did come back elevated at 17,000, which probably is related to the obviously large clot. Troponin is normal, but on the other hand, her creatinine is elevated to 3.8, which is a new finding consistent possibly with severe dehydration. PLAN: We will go ahead and continue with IV fluids, repeat her labs in the morning and make further evaluation on her as indicated. IMPRESSION: Severe deep vein thrombosis, positive pulmonary embolism to the lungs as well as acute renal failure, possible from dehydration. MYLA SMITH MD DR: AMY/abdirizak JOB#: [id number] / [id number]
[2018-10-24 14:30] VITALS: BP 93/62
--- NOTE | 2018-10-24 16:39 | RAD ---
Examination: Ultrasound kidneys HISTORY: History of hypotension, renal failure COMPARISON: None available FINDINGS: The right kidney measures 10.5 x 5.2 x 4.5 cm. The left kidney measures 10.1 x 4.8 x 5.3 cm. Mild right hydronephrosis identified. In the right lower quadrant/right adnexa region , there is a complex appearing heterogeneous echogenicity containing solid and cystic portions measuring 12.3 x 14.3 x 11.6 cm. IMPRESSION: Complex appearing large heterogeneous cystic mass right lower quadrant of the abdomen could be a right ovarian mass, however other etiologies not excluded. Recommend cross sectional imaging with CT or MRI with IV contrast if clinically feasible for further evaluation. Patient's nurse informed at 4:30 PM same day exam. Electronically signed by: David Laughlin MD (10/24/2018 4:36 PM) [place] [id number]
--- NOTE | 2018-10-24 17:53 | RAD ---
CT Abdomen and Pelvis without contrast History: Right lower quadrant mass on ultrasound Technique: Noncontrast CT imaging was performed of the abdomen and pelvis. Multiplanar images are reviewed. Exposure: One or more of the following individualized dose reduction techniques were utilized for this examination: 1. Automated exposure control 2. Adjustment of the mA and/or kV according to patient size 3. Use of iterative reconstruction technique. Comparison: Renal ultrasound earlier the same day Findings: There is some motion. There is a large central and right pelvic mass extending near the right adnexal region and the uterus. This in greatest dimension measures about 13.7 cm transverse by 11.7 cm AP by about 16.9 cm CC, internal density measurements of about 25 Hounsfield units. There is mild displacement of adjacent bowel superiorly and on the left. There is no significant free fluid. No urolithiasis or hydronephrosis is identified. Accurate evaluation of abdominal visceral organs is limited without intravenous contrast. There is large gallstone about 2.5 cm. There is no obvious abnormality of the spleen, liver, or partially fat replaced pancreas. There is left adrenal nodule about 1.1 cm, internal density measurements about 29 Hounsfield units. Accurate evaluation of bowel is limited without oral contrast. There is no significant free air, free fluid, bowel dilatation. There is mild gas distention of rectum. There is multilevel variable lumbar degenerative disc disease greatest at L2-3. There is lumbar dextroscoliosis. There is some variable lumbar neural foramina compromise greatest on the right at L4-5. Impression: 1. There is again large somewhat complex cystic mass lesion of the central and right pelvis extending near the right adnexal region and uterus, primary consideration primary ovarian mass such as cystadenoma or cystadenocarcinoma versus less likely consideration of cystic degeneration of large exophytic fibroid. 2. There is large gallstone. 3. There is small nonspecific left adrenal nodule. Electronically signed by: Larry Brooks MD (10/24/2018 5:50 PM) [facility]
[2018-10-24 18:23] VITALS: BP 101/67
[2018-10-24] MEDS: IPRATRPIUM/ALBUTEROL 0.5/2.5MG 3 ML NEBU. NEB SCH (21:21)
[2018-10-24 23:36] VITALS: BP 96/61
[2018-10-25 05:46] VITALS: BP 103/66
[2018-10-25] MEDS: IV NORMAL SALINE 1,000ML 1,000 ML IV SCH ×2 (05:59→15:15)
[2018-10-25 06:33] LABS: BASO # 0.1 x10^3/uL (0.0-0.2); BASO % 1 % (0-3); EOS # 0.6 x10^3/uL (0.0-0.7); EOS % 5 % (0-3); HEMATOCRIT 33.6 % (36.0-47.0); HEMOGLOBIN 10.8 g/dL (12.0-15.5); LYMPH # 2.7 x10^3/uL (1.0-4.8); LYMPH % 20 % (24-48); MEAN CORPUSCULAR HEMOGLOBIN 26 pg (25-35); MEAN CORPUSCULAR HGB CONC 32 g/dL (31-37); MEAN CORPUSCULAR VOLUME 80 fL (79-100); MONO # 0.8 x10^3/uL (0.0-1.1); MONO % 6 % (0-9); NEUT # 9.1 x10^3uL (1.8-7.7); NEUT % 68 % (31-73); PLATELET COUNT 184 x10^3/uL (140-400); RED BLOOD COUNT 4.21 x10^6/uL (3.50-5.40); RED CELL DISTRIBUTION WIDTH 14.3 % (11.5-14.5); WHITE BLOOD COUNT 13.3 x10^3/uL (4.0-11.0)
[2018-10-25 06:45] LABS: CALCIUM 8.7 mg/dL (8.5-10.1); CREATININE 2.1 mg/dL (0.6-1.0); GFR 23.7; POTASSIUM 4.4 mmol/L (3.5-5.1)
[2018-10-25] MEDS: APIXABAN 5 MG TABLET. PO SCH ×2 (08:25→21:14)
[2018-10-25] MEDS: IPRATRPIUM/ALBUTEROL 0.5/2.5MG 3 ML NEBU. NEB SCH ×2 (09:18→20:27)
[2018-10-25 10:59] VITALS: BP 94/51
[2018-10-25 15:02] VITALS: BP 105/58
[2018-10-25 20:19] VITALS: BP 117/62
[2018-10-25] MEDS: LACTOBACILLUS RHAMNOSUS GG 1 CAPSULE. PO SCH (21:14)
[2018-10-25 23:08] VITALS: BP 134/59
[2018-10-26] MEDS: IV NORMAL SALINE 1,000ML 1,000 ML IV SCH ×3 (00:34→18:21)
[2018-10-26 06:03] VITALS: BP 125/77
[2018-10-26 06:21] LABS: CALCIUM 8.7 mg/dL (8.5-10.1); CREATININE 1.3 mg/dL (0.6-1.0); GFR 41.2; POTASSIUM 4.5 mmol/L (3.5-5.1)
[2018-10-26] MEDS: LACTOBACILLUS RHAMNOSUS GG 1 CAPSULE. PO SCH ×2 (08:38→19:56)
[2018-10-26] MEDS: APIXABAN 5 MG TABLET. PO SCH ×2 (08:38→19:56)
[2018-10-26 08:54] LABS: BASO # 0.1 x10^3/uL (0.0-0.2); BASO % 1 % (0-3); EOS # 0.7 x10^3/uL (0.0-0.7); EOS % 5 % (0-3); HEMATOCRIT 32.2 % (36.0-47.0); HEMOGLOBIN 10.3 g/dL (12.0-15.5); LYMPH # 2.1 x10^3/uL (1.0-4.8); LYMPH % 17 % (24-48); MEAN CORPUSCULAR HEMOGLOBIN 26 pg (25-35); MEAN CORPUSCULAR HGB CONC 32 g/dL (31-37); MEAN CORPUSCULAR VOLUME 80 fL (79-100); MONO # 0.8 x10^3/uL (0.0-1.1); MONO % 6 % (0-9); NEUT % 71 % (31-73); PLATELET COUNT 182 x10^3/uL (140-400); RED BLOOD COUNT 4.02 x10^6/uL (3.50-5.40); RED CELL DISTRIBUTION WIDTH 14.4 % (11.5-14.5); WHITE BLOOD COUNT 12.7 x10^3/uL (4.0-11.0)
[2018-10-26] MEDS: BENZONATATE 100 MG CAPSULE. PO SCH ×3 (09:04→19:56)
--- NOTE | 2018-10-26 09:30 | PN ---
DATE: 10/26/2018 SUBJECTIVE: The patient is resting comfortably, says she is still having a very bad cough, some difficulty with that area there, although her oxygen saturation seems to be basically pretty stable at 94-95% on room air. OBJECTIVE: VITAL SIGNS: Blood pressure 130/70, respiratory rate 20, pulse 80, she is afebrile. GENERAL: The patient is alert and oriented. LUNGS: Diminished, but clear, although she is coughing up some phlegm. CARDIOVASCULAR: Regular sinus rhythm. ABDOMEN: Soft. Diffuse tenderness, but no rebounding, no guarding. EXTREMITIES: Left leg is a little bit less swollen than it has been. Pulses noted distally, neurologically intact. The patient is receiving IV Ancef for the left leg. There was markedly swollen and erythematous as well as any bronchitis she might be having. The patient is on high dose Eliquis for PE. She has this right pelvic mass that needs to be evaluated further whether or not it needs to be done now or as an outpatient. We will see how she progresses here until we can get her discharge and then followup with possibly INSTRUMENT TECHNICIAN HELPER. IMPRESSION: Pulmonary emboli, deep venous thrombosis of the left leg, right adnexal mass, bronchospasm and dehydration. Her creatinine has gone from 3.8 down to 1.3 with fluids. PLAN: Continue to monitor on that and make further evaluation. Try to mobilize her and possible discharge here over the weekend if at all progress as well. MYLA SMITH MD DR: AMY/abdirizak JOB#: [id number] / [id number]
[2018-10-26 10:44] VITALS: BP 118/69
[2018-10-26] MEDS: PROMETH/CODEINE 6.25/10MG 5 ML SYRUP. PO PRN ×2 (11:55→22:45)
[2018-10-26] MEDS: IPRATRPIUM/ALBUTEROL 0.5/2.5MG 3 ML NEBU. NEB SCH ×2 (12:03→20:45)
[2018-10-26 15:41] VITALS: BP 114/71
[2018-10-26 19:50] VITALS: BP 137/71
[2018-10-26] MEDS ORDERED: DOCUSATE SODIUM 100 MG CAPSULE PO PRN (20:30)
[2018-10-27] MEDS: IV NORMAL SALINE 1,000ML 1,000 ML IV SCH (03:37)
[2018-10-27 05:15] VITALS: BP 120/74
[2018-10-27] MEDS: LACTOBACILLUS RHAMNOSUS GG 1 CAPSULE. PO SCH (08:37)
[2018-10-27] MEDS: APIXABAN 5 MG TABLET. PO SCH (08:37)
[2018-10-27] MEDS: BENZONATATE 100 MG CAPSULE. PO SCH (08:37)
[2018-10-27] MEDS ORDERED: IOHEXOL 350 MG/ML 100 ML VIAL. IV ONE ×2 (09:00→12:00)
[2018-10-27] MEDS: PROMETH/CODEINE 6.25/10MG 5 ML SYRUP. PO PRN (09:30)
[2018-10-27] MEDS: IPRATRPIUM/ALBUTEROL 0.5/2.5MG 3 ML NEBU. NEB SCH (09:40)
[2018-10-27 10:48] VITALS: BP 125/73
--- NOTE | 2018-10-27 13:12 | RAD ---
CT ANGIOGRAPHY CHEST Indication: Shortness of breath. Known pulmonary embolism, diagnosed on ventilation/perfusion lung scan of October 24 venous Doppler ultrasound of September 2017 demonstrated deep venous thrombosis. Technique: After intravenous contrast administration, CT imaging was performed of the chest. MIP reconstructions were obtained. Exposure: One or more of the following individualized dose reduction techniques were utilized for this examination: 1. Automated exposure control 2. Adjustment of the mA and/or kV according to patient size 3. Use of iterative reconstruction technique. Comparison: None FINDINGS: Poor opacification of the pulmonary arteries, uncertain reason. However, there does appear to be a filling defect within the left main and lower lobe pulmonary artery branches compatible with an embolism. Possible small filling defect within right lower pulmonary artery, but poorly seen due to the lack of enhancement. Ascending aorta measures 3.5 cm wide compatible with mild ectasia. There is originated the wall of the ascending aorta, likely due to pulsatility artifact. No evidence of descending aortic dissection. No gross aortic aneurysm. No significant thyroid mass. No significant lymph node enlargement. No evidence of pericardial effusion or pleural effusion. Small left upper lobe pulmonary nodule measures 3 mm, series 3, image 18. There is some mild linear opacities in the left upper lobe posteriorly likely scarring or minimal atelectasis. No dense airspace consolidation. Trachea and major bronchi are patent. No aggressive bone destruction. Scans through the upper abdomen are limited by technique but no obvious acute abnormality. IMPRESSION: 1. Exam is suboptimal due to limited enhancement of the pulmonary arteries. However, there does appear to be at least pulmonary emboli in the left main through the lower lobe pulmonary arteries, as well as possibly right lower lobe pulmonary arteries, compatible with patient's known diagnosis of pulmonary embolism. 2. Ascending aorta ectasia. 3. Small left upper lobe pulmonary nodule measures 3 mm. As per revised Fleischner guidelines, consider follow-up CT chest in 12 months if patient is high risk. FOR INTERNAL CODING PURPOSES Critical result: Findings discussed with nurse Dunn at 10/27/2018 1:09 PM. RESULT CODE: (C) Electronically signed by: Seun Mathis MD (10/27/2018 1:09 PM) [facility]
[2018-10-27] MEDS ORDERED: METOPROLOL TART IMMED RELEASE 25 MG TABLET PO ONE (13:45)
[2018-10-27 13:47] VITALS: BP 125/73
--- NOTE | 2018-10-27 21:29 | PN ---
DATE: 10/27/2018 SUBJECTIVE: A 63-year-old female in with significant PE and DVT of the left leg. She also had some cellulitis to the lower leg itself. The patient also had acute on top of chronic renal failure, although that is improved from 3.8 down to 1.3 with hydration. The patient still continues to have a nagging cough and we will get a CTA and that her kidney function has resolved. The patient otherwise is still coughing and still short of breath and weakness. The patient does have a right lower adnexal mass, but because of this is weekend, we are not going to be able to do much with that. OBJECTIVE: VITAL SIGNS: Blood pressure 120/74, respiration 18, pulse 70, afebrile. GENERAL: The patient is alert. LUNGS: Diminished throughout, but basically clear the nagging cough. CARDIOVASCULAR: Regular sinus rhythm. ABDOMEN: Soft, diffuse tenderness in that right lower quadrant. EXTREMITIES: Left leg still markedly swollen, redness to the lower leg has been markedly improved. The patient is on 10 mg of Eliquis b.i.d. The patient otherwise continues to be monitored carefully and white count has come down as well as the creatinine. IMPRESSION: Therefore, significant pulmonary emboli as well as acute on top of chronic renal failure, right adnexal mass, cellulitis to the left lower leg, significant deep venous thrombosis of the left lower leg, anemia of chronic. PLAN: Continue with monitoring the patient. We will go ahead and get a CTA to evaluate her further on her blood clots. MYLA SMITH MD DR: AMY/abdirizak JOB#: [id number] / [id number]
== END 2018-10-27 14:10 | disposition short-term general hospital (02) | DRG 299 ==
LOC: ER 04:25 → 1 SOUTH 06:27
PROVIDERS: ADMIT Family Medicine; ATTEND Family Medicine
DX: I82.412 Acute embolism and thrombosis of left femoral vein (principal); I26.99 Other pulmonary embolism without acute cor pulmonale; N17.9 Acute kidney failure, unspecified; L03.116 Cellulitis of left lower limb; D63.8 Anemia in other chronic diseases classified elsewhere; E86.0 Dehydration; I12.9 Hypertensive chronic kidney disease with stage 1 through stage 4 chronic kidney disease, or unspecified chronic kidney disease; J98.01 Acute bronchospasm; F32.9 Major depressive disorder, single episode, unspecified; N18.9 Chronic kidney disease, unspecified; Z90.49 Acquired absence of other specified parts of digestive tract; I25.2 Old myocardial infarction
CPT/HCPCS: 36415; 71045; 71275; 74176; 76770; 78582; 80048; 80053; 81001; 83605; 84484; 85007; 85025; 87086; 93005; 93971; 94640; 96374; A9540; A9558; J0690; J0696; J7620; J7030

== ENCOUNTER 2018-12-19 23:06 | Emergency (ER) | payer SELFPAY ==
[~2018-12-19] VITALS: Ht 170.2 cm; Wt 97.7 kg
[~2018-12-19 23:06] MED LIST changes: +HYDR12.58 PO
[2018-12-20] MEDS ORDERED: CONTRAST GIVEN MC PRN (00:15)
[2018-12-20 00:23] LABS: BASO # 0.1 x10^3/uL (0.0-0.2); BASO % 1 % (0-3); EOS % 0 % (0-3); HEMATOCRIT 35.3 % (36.0-47.0); HEMOGLOBIN 11.3 g/dL (12.0-15.5); LYMPH # 3.1 x10^3/uL (1.0-4.8); LYMPH % 11 % (24-48); MEAN CORPUSCULAR HEMOGLOBIN 24 pg (25-35); MEAN CORPUSCULAR HGB CONC 32 g/dL (31-37); MEAN CORPUSCULAR VOLUME 75 fL (79-100); MONO # 1.8 x10^3/uL (0.0-1.1); MONO % 7 % (0-9); NEUT # 22.9 x10^3uL (1.8-7.7); NEUT % 82 % (31-73); PLATELET COUNT 392 x10^3/uL (140-400); RED BLOOD COUNT 4.72 x10^6/uL (3.50-5.40); RED CELL DISTRIBUTION WIDTH 15.8 % (11.5-14.5)
[2018-12-20] MEDS ORDERED: IOHEXOL 300 MG/ML 75 ML VIAL. IV ONE (00:30)
[2018-12-20] MEDS ORDERED: ONDANSETRON PF 4 MG/2 ML VIAL. IVP ONE (00:30)
[2018-12-20] MEDS ORDERED: IV NORMAL SALINE 1,000ML 1,000 ML IV ONE ×4 (00:30→02:00)
[2018-12-20 00:31] LABS: BACTERIA,URINE FEW /HPF (0-FEW); BILIRUBIN,URINE NEG (NEG); CLARITY,URINE CLEAR; COLOR,URINE YELLOW; GLUCOSE,URINE NEG (NEG); NITRITE,URINE NEG (NEG); SQUAMOUS EPITHELIAL CELL,UR FEW /LPF; UROBILINOGEN,URINE 0.2 mg/dL (0.2 mg/dL)
[2018-12-20 00:32] LABS: RBC,URINE OCC /HPF (0-2)
[2018-12-20 00:39] LABS: ALBUMIN 3.1 g/dL (3.4-5.0); ALBUMIN/GLOBULIN RATIO 0.6 (1.0-1.7); CALCIUM 10.3 mg/dL (8.5-10.1); CREATININE 2.1 mg/dL (0.6-1.0); GFR 23.7; TOTAL BILIRUBIN 0.5 mg/dL (0.2-1.0); TOTAL PROTEIN 8.2 g/dL (6.4-8.2)
[2018-12-20 00:53] LABS: % BANDS 4 % (0-9); % LYMPHS 17 % (24-48); % MONOS 2 % (0-10); % SEGS 77 % (35-66); PLT ESTIMATE ADEQUATE (ADEQUATE)
[2018-12-20 00:54] LABS: MICROCYTOSIS SLIGHT
--- NOTE | 2018-12-20 01:37 | RAD ---
PQRS Compliance statement: One or more of the following individualized dose reduction techniques were utilized for this examination: 1. Automated exposure control. 2. Adjustment of the mA and/or kV according to patient size. 3. Use of iterative reconstruction technique. Indication:Right lower quadrant pain, nausea and vomiting. TECHNIQUE: CT abdomen and pelvis without IV contrast with multiplanar reformats. COMPARISON: 10/24/2018 FINDINGS: Limited evaluation of solid abdominal and pelvic organs due to lack of IV contrast. Heart is normal in size. No pericardial or pleural effusion. Clear lung bases. Noncontrast appearance of the liver, spleen, pancreas, adrenals and kidneys are within normal limits. No free pelvic fluid or ascites. No enlarged retroperitoneal or pelvic adenopathy. Gallstone noted. No pericholecystic fluid or inflammatory changes. No bowel obstruction. Appendix is not visualized. No pneumoperitoneum. Enlarged uterus measuring 18.0 x 12.0 x 15.0 cm. Urinary bladder demonstrates no radiopaque stone. No suspicious bony lesion. IMPRESSION: Limited evaluation of solid abdominal and pelvic organs due to lack of IV contrast. 1. No bowel obstruction. Appendix is not visualized. 2. No nephrolithiasis or hydronephrosis. 3. Cholelithiasis without imaging evidence of acute cholecystitis. If concern for acute cholecystitis high consider further evaluation with HIDA scan. 4. Enlarged uterus most likely secondary to fibroids. Electronically signed by: Glen Griffin DO (12/20/2018 1:34 AM) [facility]
[2018-12-20] MEDS ORDERED: PIPERACILLIN/TAZOBACTAM 3.375 GM VIAL IV ONE (01:47)
[2018-12-20] MEDS ORDERED: IV NORMAL SALINE 50ML 50 ML ONE (01:48)
[2018-12-20] MEDS ORDERED: PIPERACILLIN/TAZOBACTAM 3.375 GM in IV NORMAL SALINE 50ML 50 ML IV ONE (02:00)
--- NOTE | 2018-12-20 02:16 | RAD ---
PROCEDURE: CHEST AP ONLY CLINICAL INDICATION: Shortness of breath, cough. COMPARISON: None FINDINGS: No pneumothorax identified. Cardiac and mediastinal contours unremarkable. No pulmonary consolidation or acute airspace disease. No acute osseous abnormalities identified. IMPRESSION: No pulmonary consolidation or acute airspace disease. Electronically signed by: Glen Griffin DO (12/20/2018 2:13 AM) [facility]
--- NOTE | 2018-12-20 02:20 | ED.ADGEN ---
Past History Past Medical History: Depression, DVT, Hypertension, Other Additional Past Medical Histor: pt states has liver dr but does not know liver dx Past Surgical History: Appendectomy, Alcohol Use: None Drug Use: None Adult General Chief Complaint Chief Complaint Abdominal pain, nausea vomiting HPI HPI Patient is a 63-year-old female presents with diffuse right periumbilical abdominal pain since yesterday. Pain goal rated moderate. Nonradiating. Pain is associated nausea with vomiting 3. Reports subjective fever chills. No flank pain, urinary frequency urgency or burning. No chest pain shortness of breath. Denies dizzy lightheadedness. No other acute symptoms or complaints. [] Review of Systems Review of Systems Review symptoms as per history of present illness. All other systems were reviewed and found to be within normal limits, except as documented in this note. Current Medications Current Medications Current Medications Medications (Trade) Dose Ordered Sig/Asuncion Start Time Stop Time Status Last Admin Dose Admin Info (Do NOT chart on this entry -- for MONITORING) 1 each PRN DAILY PRN 12/20/18 00:15 12/22/18 00:14 Iohexol (Omnipaque 300 Mg/ml) 75 ml 1X ONCE 12/20/18 00:30 12/20/18 00:31 DC Ondansetron HCl (Zofran) 4 mg 1X ONCE 12/20/18 00:30 12/20/18 00:31 DC 12/20/18 00:39 4 MG Piperacillin Sod/ Tazobactam Sod (Zosyn) 3.375 gm STK-MED ONCE 12/20/18 01:47 12/20/18 01:47 DC Piperacillin Sod/ Tazobactam Sod 3.375 gm/Sodium Chloride 50 ml @ 100 mls/hr 1X ONCE 12/20/18 02:00 12/20/18 02:29 DC 12/20/18 01:55 100 MLS/HR Sodium Chloride 50 ml @ As Directed STK-MED ONCE 12/20/18 01:48 12/20/18 01:48 DC Allergies Allergies Allergies Coded Allergies Type Severity Reaction Last Updated Verified No Known Drug Allergies 06/26/18 No Physical Exam Physical Exam Constitutional: Well developed, well nourished, no acute distress, non-toxic appearance. [] HENT: Normocephalic, atraumatic, bilateral external ears normal, oropharynx moist, no oral exudates, nose normal. [] Eyes: PERRLA, EOMI, conjunctiva normal, no discharge. [] Neck: Normal range of motion, no tenderness, supple, no stridor. [] Cardiovascular:Heart rate regular rhythm, no murmur [] Lungs & Thorax: Bilateral breath sounds clear to auscultation [] Abdomen: Bowel sounds normal, soft, obesity compromising exam, right periumbilical pain/tenderness.. [] Skin: Warm, dry, no erythema, no rash. [] Back: No tenderness, no CVA tenderness. [] Extremities: No tenderness, no edema. [] Neurologic: Alert and oriented X 3, normal motor function, normal sensory function, no focal deficits noted. [] Psychologic: Affect normal, judgement normal, mood normal. [] Current Patient Data Vital Signs Vital Signs Date Time Temp Pulse Resp B/P (MAP) Pulse Ox O2 Delivery O2 Flow Rate FiO2 12/20/18 01:53 82 18 123/66 (85) 98 Room Air 12/19/18 23:15 98.9 Lab Results Laboratory Tests Test 12/19/18 23:30 12/19/18 23:40 12/20/18 01:50 Urine Collection Type Unknown Urine Color Yellow Urine Clarity Clear Urine pH 5.0 Urine Specific [place] 1.025 Urine Protein 30 mg/dl (NEG-TRACE) Urine Glucose (UA) Neg mg/dL (NEG) Urine Ketones (Stick) Neg mg/dL (NEG) Urine Blood Small (NEG) Urine Nitrite Neg (NEG) Urine Bilirubin Neg (NEG) Urine Urobilinogen Dipstick 0.2 mg/dL (0.2 mg/dL) Urine Leukocyte Esterase Neg (NEG) Urine RBC Occ /HPF (0-2) Urine WBC 5-10 /HPF (0-4) Urine Squamous Epithelial Cells Few /LPF Urine Bacteria Few /HPF (0-FEW) White Blood Count 28.0 x10^3/uL (4.0-11.0) H Red Blood Count 4.72 x10^6/uL (3.50-5.40) Hemoglobin 11.3 g/dL (12.0-15.5) L Hematocrit 35.3 % (36.0-47.0) L Mean Corpuscular Volume 75 fL (79-100) L Mean Corpuscular Hemoglobin 24 pg (25-35) L Mean Corpuscular Hemoglobin Concent 32 g/dL (31-37) Red Cell Distribution Width 15.8 % (11.5-14.5) H Platelet Count 392 x10^3/uL (140-400) Neutrophils (%) (Auto) 82 % (31-73) H Lymphocytes (%) (Auto) 11 % (24-48) L Monocytes (%) (Auto) 7 % (0-9) Eosinophils (%) (Auto) 0 % (0-3) Basophils (%) (Auto) 1 % (0-3) Neutrophils # (Auto) 22.9 x10^3uL (1.8-7.7) H Lymphocytes # (Auto) 3.1 x10^3/uL (1.0-4.8) Monocytes # (Auto) 1.8 x10^3/uL (0.0-1.1) H Eosinophils # (Auto) 0.0 x10^3/uL (0.0-0.7) Basophils # (Auto) 0.1 x10^3/uL (0.0-0.2) Segmented Neutrophils % 77 % (35-66) H Band Neutrophils % 4 % (0-9) Lymphocytes % 17 % (24-48) L Monocytes % 2 % (0-10) Platelet Estimate Adequate (ADEQUATE) Microcytosis Slight Sodium Level 137 mmol/L (136-145) Potassium Level 3.0 mmol/L (3.5-5.1) L Chloride Level 97 mmol/L (98-107) L Carbon Dioxide Level 29 mmol/L (21-32) Anion Gap 11 (6-14) Blood Urea Nitrogen 22 mg/dL (7-20) H Creatinine 2.1 mg/dL (0.6-1.0) H Estimated GFR (Cockcroft-Gault) 23.7 BUN/Creatinine Ratio 10 (6-20) Glucose Level 143 mg/dL (70-99) H Calcium Level 10.3 mg/dL (8.5-10.1) H Total Bilirubin 0.5 mg/dL (0.2-1.0) Aspartate Amino Transferase (AST) 46 U/L (15-37) H Alanine Aminotransferase (ALT) 25 U/L (14-59) Alkaline Phosphatase 93 U/L (46-116) CQ-Hes-Y-Type Natriuretic Peptide 1713 pg/mL (0-124) H Total Protein 8.2 g/dL (6.4-8.2) Albumin 3.1 g/dL (3.4-5.0) L Albumin/Globulin Ratio 0.6 (1.0-1.7) L Lipase 76 U/L (73-393) Lactic Acid Level 1.2 mmol/L (0.4-2.0) Radiology/Procedures Radiology/Procedures [CT abdomen pelvis: Solid abdominal pelvic organs/uterus measuring 18 x 12 x 15 cm, no bowel obstruction, appendix not visualized. Cholelithiasis without evidence of cholecystitis. Chest x-ray: No discrete pulmonary infiltrate on preliminary ED review] Course & Med Decision Making Course & Med Decision Making Pertinent Labs and Imaging studies reviewed. (See chart for details) [Abdominal pain with elevated white blood cell count without obvious source of infection. Patient afebrile with stable vital signs. IV fluids and empiric antibiotics given. Given large abdominal mass and limited CT scan due to lack of contrast will transfer to [facility] for higher level of care. Final Impression Final Impression #1 abdominal pain #2 sepsis[] Dragon Disclaimer Dragon Disclaimer This electronic medical record was generated, in whole or in part, using a voice recognition dictation system. REDDY MONTAÑO DO Dec 20, 2018 02:20
[2018-12-20 03:05] VITALS: BP 121/56
== END 2018-12-20 03:22 | disposition short-term general hospital (02) ==
LOC: ER 23:06
DX: A41.9 Sepsis, unspecified organism (principal); Z86.718 Personal history of other venous thrombosis and embolism; I10 Essential (primary) hypertension; Z98.890 Other specified postprocedural states; Z90.89 Acquired absence of other organs
CPT/HCPCS: 36415; 71045; 74176; 80053; 81001; 83605; 83690; 83880; 85007; 85025; 87040; 87086; 87205; 96361; 96365; 96375; 99285; J2405; J2543; J7030